=== PATIENT | female | born 1955 | race Caucasian/White ===

== ENCOUNTER → 2018-05-06 | Outpatient (CLI) | payer BC, OTHER ==
[~2018-05-06] MED LIST: NO HOME MEDICATIONS; VICODIN 5/5001 UDTAB PO
== END ==
LOC: COL.VAS 05-05 09:15
DX: I35.1 Nonrheumatic aortic (valve) insufficiency (principal); I10 Essential (primary) hypertension; R94.31 Abnormal electrocardiogram [ECG] [EKG]

== ENCOUNTER 2018-05-25 12:52 | Outpatient (RCR) | payer BC, OTHER | END 2018-08-23 | disposition home or self-care (01) | LOC: MKS.ESL.PT | DX: M54.5 Low back pain (principal); G89.29 Other chronic pain ==

== ENCOUNTER → 2018-09-24 | Outpatient (CLI) | payer BC, OTHER | LOC: MC.RAD 10:51 | DX: Z12.31 Encounter for screening mammogram for malignant neoplasm of breast (principal) ==

== ENCOUNTER → 2021-11-01 | Outpatient (CLI) | payer BC | LOC: COL.RAD 13:07 | DX: Z12.2 Encounter for screening for malignant neoplasm of respiratory organs (principal); F17.200 Nicotine dependence, unspecified, uncomplicated ==

== ENCOUNTER 2021-11-20 09:31 | Outpatient (CLI) | payer BC ==
[~2021-11-20] VITALS: Ht 162.6 cm; Wt 77.8 kg
[2021-11-20] VITALS (14 sets, daily range): BP systolic 141–185; BP diastolic 77–102; PULSE 67–81; TEMP 97.9
[~2021-11-20 09:31] MED LIST changes: +DOXYCYCLINE HY100 MG PO; +FLEXERIL 1010 MG/TAB PO; +HCTZ 25MG TAB25 MG PO; +HORIZANT300 MG PO; +LIPITOR 10MG10 MG PO; +MOTRIN 200200 MG/TAB PO; +NORCO 325 MG-51 TAB PO; +TOPROL XL100 MG PO
--- NOTE | 2021-11-20 13:19 | NUR ---
Discharge instructions given to pt.Pt verbalizes understanding.INT removed,catheter tip intact.pt escorted out by this nurse.
== END 2021-11-20 14:40 ==
LOC: COL.RAD 09:31
DX: C34.92 Malignant neoplasm of unspecified part of left bronchus or lung (principal)
CPT/HCPCS: 32106

== ENCOUNTER → 2022-01-02 | Outpatient (CLI) | payer BC | LOC: COL.RAD 08:25 | DX: C34.92 Malignant neoplasm of unspecified part of left bronchus or lung (principal); G31.9 Degenerative disease of nervous system, unspecified; I67.82 Cerebral ischemia | CPT/HCPCS: A9575 ==

== ENCOUNTER 2022-03-13 12:19 | Day surgery (SDC) | payer BC ==
[2022-03-13] VITALS (10 sets, daily range): BP systolic 130–177; BP diastolic 50–752; PULSE 65–83
[~2022-03-13] VITALS: Ht 162.6 cm; Wt 76.3 kg
[2022-03-13 13:10] LABS: HEMATOCRIT 42.8 % (37.0-47.0); HEMOGLOBIN 14.6 g/dl (12.5-16.0); MEAN CELL VOLUME 96 fl (80.0-100.0); MEAN CORPUSCULAR HEMOGLOBIN 33 pg (27-31); MEAN CORPUSCULAR HGB CONC 34 g/dl (33.0-37.0); MEAN PLATELET VOLUME 9.6 fl (7.4-10.4); PLATELET COUNT 286 K/mm3 (130-400); RED BLOOD COUNT 4.45 M/mm3 (4.10-5.30)
[2022-03-13 13:20] LABS: CALCIUM 9.5 mg/dL (8.4-10.2); CREATININE, serum 0.74 mg/dL (0.57-1.11); POTASSIUM 4.7 mmol/L (3.5-4.5)
[2022-03-13 13:21] LABS: PARTIAL THROMBOPLASTIN TIME 32.8 SECONDS (26.0-37.0)
[2022-03-13] MEDS ORDERED: COZAAR 50MG50 MG/TAB PO (14:33)
[2022-03-13] MEDS ORDERED: TYLENOL PM EXTR1 TA1 PO (14:35)
[2022-03-13] MEDS ORDERED: ASPIRIN E.C. 8181 MG PO (14:36)
--- NOTE | 2022-03-13 15:04 | NUR ---
SEE MERGE FOR ALL MEDICATION ADMINISTRATION TIMES, INTRA AND POST SEDATION ASSESSMENTS
--- NOTE | 2022-03-13 18:30 | NUR ---
Discharge instructions given to pt by Denzel Ford.Pt verbalizes understanding to this nurse.All air removed from band in 2-3 ml incriments.No bleeding observed at site.
--- NOTE | 2022-03-13 18:35 | NUR ---
REMAINDER OF AIR IN TR BAND REMOVED BY MELA CHAOATTENDANT CHILD ACTIVITY NURSE, PT ESCORTED VIA WHEELCHAIR TO CAR.
== END 2022-03-13 18:45 | disposition home or self-care (01) ==
LOC: COL.CAR 12:19
PROVIDERS: Internal Medicine Cardiovascular Disease
DX: R94.31 Abnormal electrocardiogram [ECG] [EKG] (principal); I10 Essential (primary) hypertension; E78.00 Pure hypercholesterolemia, unspecified; F17.210 Nicotine dependence, cigarettes, uncomplicated
CPT/HCPCS: J1644; J2250; J3010

== ENCOUNTER → 2023-09-19 | Outpatient (CLI) | payer MEDICARE, OTHER ==
[~2023-09-19] MED LIST changes: +ASPIRIN E.C. 8181 MG PO; +COZAAR 50MG50 MG/TAB PO; +Iohexol 300 - 100 ML VIAL IV ONE; +NS 100 ML IV SCH; +TYLENOL PM EXTR1 TA1 PO
== END ==
LOC: COL.RAD 09:10
DX: C34.32 Malignant neoplasm of lower lobe, left bronchus or lung (principal); K76.89 Other specified diseases of liver; R91.8 Other nonspecific abnormal finding of lung field
CPT/HCPCS: J1644; Q9967

== ENCOUNTER 2024-01-09 08:38 | Emergency (ER) | payer MEDICARE, OTHER ==
[~2024-01-09] VITALS: Ht 162.6 cm; Wt 75.5 kg
[~2024-01-09 08:38] MED LIST changes: -Iohexol 300 - 100 ML VIAL IV ONE; -NS 100 ML IV SCH
[2024-01-09 08:39] VITALS: TEMP 98.6
[2024-01-09 09:40] LABS: HEMOGLOBIN 11.5 g/dl (12.5-16.0); MEAN CELL VOLUME 101 fl (80.0-100.0); MEAN CORPUSCULAR HEMOGLOBIN 35 pg (27-31); MEAN CORPUSCULAR HGB CONC 35 g/dl (33.0-37.0); MEAN PLATELET VOLUME 10.9 fl (7.4-10.4); PLATELET COUNT 93 K/mm3 (130-400); RED BLOOD COUNT 3.29 M/mm3 (4.10-5.30); REDCELL DISTRIBUTION WIDTH-CV 12.2 % (11.5-14.5)
[2024-01-09 09:46] LABS: HEMATOCRIT 33.1 % (37.0-47.0)
[2024-01-09 09:59] LABS: ALBUMIN 2.6 g/dL (3.4-4.8); CALCIUM 8.8 mg/dL (8.4-10.2); CREATININE, serum 0.99 mg/dL (0.57-1.11); POTASSIUM 3.3 mEq/L (3.5-4.5)
[2024-01-09 10:06] LABS: TROPONIN-I 0.163 ng/mL (0.00-0.033)
[2024-01-09 10:35] LABS: BAND 1 % (0-10); LYMPHOCYTE 43 % (20.0-51.0); METAMYELOCYTE 1 % (0-0); NEUTROPHILS 55 % (42.0-75.2); NUCLEATED RED BLOOD CELL 2 (0-6); PLATELET ESTIMATE DECREASED (NORMAL)
[2024-01-09] MEDS ORDERED: NS 100 ML IV SCH (10:37)
[2024-01-09] MEDS ORDERED: Iohexol 300 - 100 ML VIAL IV ONE (10:37)
[2024-01-09] MEDS ORDERED: K-DUR 10 MEQ T10 MEQ PO (10:40)
[2024-01-09] MEDS ORDERED: LASIX 20MG TABL20 MG PO (10:41)
[2024-01-09] MEDS ORDERED: FOLIC ACID 11 MG/TA1 PO (10:42)
[2024-01-09] MEDS ORDERED: DECADRON 4MG TAB4 MG PO (10:42)
[2024-01-09] MEDS ORDERED: Heparin/D5W 250 ML IV SCH (11:45)
[2024-01-09] MEDS ORDERED: Heparin 5,000 UNITS/ML 1 ML VIAL IV ONE (11:45)
[2024-01-09] MEDS ORDERED: Heparin 5,000 UNITS/ML 1 ML VIAL IV PRN (11:45)
[2024-01-09 12:31] LABS: PARTIAL THROMBOPLASTIN TIME 55.2 SECONDS (26.0-37.0)
[2024-01-09 12:32] LABS: PROTHROMBIN TIME 11.1 SECONDS (9.7-12.8)
[2024-01-09 13:10] VITALS: BP 115/73; PULSE 115
== END 2024-01-09 13:10 | disposition short-term general hospital (02) ==
LOC: COL.ER 08:38
PROVIDERS: Emergency Medicine
DX: R10.9 Unspecified abdominal pain (principal); E87.8 Other disorders of electrolyte and fluid balance, not elsewhere classified; I21.4 Non-ST elevation (NSTEMI) myocardial infarction
CPT/HCPCS: J1644; Q9967